=== PATIENT | male | born 1950 | race Caucasian/White ===

== ENCOUNTER → 2018-01-29 18:44 | Outpatient (REF) | payer MEDICARE, BC, SELFPAY | LOC: LAB 18:44 | PROVIDERS: Visit Provider Dermatology MOHS-Micrographic Surgery | DX: Z48.817 Encounter for surgical aftercare following surgery on the skin and subcutaneous tissue (principal); L01.00 Impetigo, unspecified | CPT/HCPCS: 87070; 87075; 87077; 87186; 87205 ==

== ENCOUNTER 2018-09-14 10:13 | Day surgery (SDC) | payer MEDICARE, BC, SELFPAY ==
[2018-08-28 12:16] VITALS: BMI 29.0
[2018-09-14] MEDS: LIDOCAINE 2% INJ SDV 5 ML INJ (11:00)
[2018-09-14] MEDS: BUPIVACAINE 0.5% (PF) VIAL 30 ML INJ (11:00)
[2018-09-14 11:07] VITALS: BP 120/68; PULSE 68; RESP 15; TEMP 36.3; O2SAT 97; BMI 29.0
[2018-09-14] MEDS: LACTATED RINGERS 1,000 ML 42 ML IV (11:20)
--- NOTE | 2018-09-14 11:54 | PM.PREOP ---
Pre-operative Note Interval Note History & Physical reviewed/Exam performed by Physician: Yes Changes to H&P: No
--- NOTE | 2018-09-14 11:54 | PM.OP.1 ---
Operative Date/Time/Diagnoses Date of procedure: 09/14/18 Time of procedure: 11:55 Pre-op diagnosis: Ankle pain, bilateral Plantar fasciitis, bilateral Post-op diagnosis: same Procedure & Clinicians Procedure: 1) Intraarticular steroid injection left and right ankles 2) Plantar fascial steroid injection left and right heels. Same procedure as scheduled: Yes Indications: Painful ankle joint and plantar fasciitis. To move forward with treatment he preferred sedation for the injections of the above concerns. Surgeon: Josie Gray Click Yes if Unassisted: Yes Anesthesia Type: Sedation Operative Notes Closure Type: not applicable Specimen(s): none sent Blood products transfused: none Tourniquet time (min): 0 Procedure in detail: Patient was brought to the operating room and placed on the operating table in supine position. After IV sedation Um the foot and ankles were sterilely prepped and draped in the usual aseptic manner. Using sterile technique, the the left anterolateral ankle was approached and injected with dexamethasone phosphate 5 mg, 0.5% Marcaine plain, and 2% lidocaine plain. The same procedure was performed to the contralateral ankle. Next, the left heel was injected just distal to the medial calcaneal tubercle along the plantar fascia of Kenalog 20 mg in 0.5% Marcaine plain and 2% lidocaine plain. The same procedure was performed to the right heel. The patient tolerated the injections well and was transferred to PACU with vital signs stable and vascular status intact. Complications: none Condition: stable Disposition: PACU Plan for aftercare: Postoperative expectation and care after steroid instructions is reviewed verbally with he and his shoe. They had no additional questions. We will see him at his already scheduled follow-up appointment for both above concerns generally within a month of this procedure.
--- NOTE | 2018-09-14 12:33 | SUR.OPER ---
Supine on padded OR bed, head on pillow, arms secured on padded arm boards at <90 degrees abduction, legs uncrossed, safety belt at thigh, tape over blanket over lower legs.
[2018-09-14 12:40] VITALS: BP 124/76; PULSE 65; RESP 16; TEMP 36.4; O2SAT 95
--- NOTE | 2018-09-14 13:01 | SUR.PHASEII ---
1250 pt requests to go home , bandaids dci, no pain, Dr wyatt in to talk with patient, no questions , pt steady on feet , no co's
[2018-09-14] MEDS: DEXAMETHASONE 10 MG/ML VIAL INJ (14:13)
[2018-09-14] MEDS: TRIAMCINOLONE 40 MG/ML VIAL IM (14:17)
== END 2018-09-14 12:54 ==
LOC: OR 10:17
PROVIDERS: PCP Family Medicine; Visit Provider Podiatrist
PROC: (CPT 20605; principal; 2018-09-14 11:45)
DX: M72.2 Plantar fascial fibromatosis (principal); M76.821 Posterior tibial tendinitis, right leg; M76.822 Posterior tibial tendinitis, left leg; M25.871 Other specified joint disorders, right ankle and foot; M25.872 Other specified joint disorders, left ankle and foot; I10 Essential (primary) hypertension; E78.5 Hyperlipidemia, unspecified; F32.9 Major depressive disorder, single episode, unspecified; D50.9 Iron deficiency anemia, unspecified
CPT/HCPCS: 20605; 20550; J1100; J2704; J3010

== ENCOUNTER 2018-12-14 08:56 | Day surgery (SDC) | payer MEDICARE, BC, SELFPAY ==
[2018-11-30 10:55] VITALS: BMI 29.0
--- NOTE | 2018-12-14 08:00 | PM.OP.1 ---
Operative Date/Time/Diagnoses Date of procedure: 12/14/18 Time of procedure: 11:08 Pre-op diagnosis: Left and right ankle joint impingement, arthritis Left and right plantar fasciitis Post-op diagnosis: same Procedure & Clinicians Procedure: Left and right anterolateral ankle joint injection steroid Left and right plantar fascial injection steroid Same procedure as scheduled: Yes Indications: Painful plantar fasciitis and ankle arthritis, impingement Surgeon: Josie Vora Yes if Unassisted: Yes Anesthesia Type: Sedation Operative Notes Closure Type: not applicable Specimen(s): none sent Estimated Blood Loss (mL): 0 Blood products transfused: none Procedure in detail: Patient was brought to the operating room and placed on the operating table in supine position. After IV sedation the foot and ankles were sterilely prepped and draped in the usual aseptic manner. Using sterile technique, the left anterolateral ankle was approached and injected with dexamethasone phosphate 5 mg, 0.5% Marcaine plain, and 2% lidocaine plain. The same procedure was performed to the contralateral ankle. Next, the left heel was injected just distal to the medial calcaneal tubercle along the plantar fascia of Kenalog 20 mg in 0.5% Marcaine plain and 2% lidocaine plain. The same procedure was performed to the right heel. The patient tolerated the injections well and was transferred to PACU with vital signs stable and vascular status intact Complications: none Condition: stable Disposition: PACU Plan for aftercare: Caution through the day on activity as the areas injected may have some transient numbness. Reviewed to follow up in approx 3-4 wks for review of his symptoms and next level of treatment.
[2018-12-14 09:20] VITALS: BMI 29.4
[2018-12-14 09:27] VITALS: BP 138/88; PULSE 61; RESP 12; TEMP 37.3; O2SAT 96
[2018-12-14] MEDS: LACTATED RINGERS 1,000 ML 42 ML IV (09:38)
--- NOTE | 2018-12-14 11:11 | PM.PREOP ---
Pre-operative Note Interval Note History & Physical reviewed/Exam performed by Physician: Yes Changes to H&P: No
--- NOTE | 2018-12-14 11:34 | SUR.OPER ---
Supine on padded OR bed, head on pillow, arms secured on padded arm boards at <90 degrees abduction, legs uncrossed, safety belt at thigh, tape over blanket over lower legs.
[2018-12-14] MEDS: TRIAMCINOLONE 40 MG/ML VIAL IM (11:42)
[2018-12-14 11:43] VITALS: BP 127/73; PULSE 65; RESP 13; O2SAT 97
[2018-12-14] MEDS: DEXAMETHASONE 10 MG/ML VIAL IV (11:44)
[2018-12-14 11:45] VITALS: BP 127/73; PULSE 61; RESP 12; O2SAT 98
[2018-12-14] MEDS: BUPIVACAINE 0.5% (PF) VIAL 30 ML INJ (11:46)
[2018-12-14] MEDS: LIDOCAINE 2% INJ MDV 20 ML INJ (11:47)
[2018-12-14 11:55] VITALS: BP 133/73; PULSE 67; RESP 14; TEMP 36.8; O2SAT 94
--- NOTE | 2018-12-14 12:12 | SUR.PHASEII ---
1146 late entry Received pt for Diana Quigley, RN in PACU; said that patient was stable to discharge. Pt wide awake, oriented, c/o foot/ankle pain 08/08. To [facility],. bed down and locked. Juice and crackers given. Discussed pain level with Dr. Gray; stated that she instilled numbing medication and that his pain level is unrelated to what she did. Will dc patient without medication. Bandaids CDI on bilateral feet. to bedside. spoke with them both. 1205 VSS, Prepared to DC.
--- NOTE | 2018-12-14 12:18 | PM.PROC.1 ---
Procedures Date/Time Date of procedure: 12/14/18 Time of procedure: 12:05 General Procedure description: Ultrasound guided popliteal sciatic nerve block for post op pain control after right foot MTP joint arthrodesis by Dr. Gray. Risk and benefits of procedure discussed with patient. ASA monitoring applied to patient. Oxygen given via nasal cannula. 30 mg propofol and 0.5mg hydromorphone for sedation. Patient was in prone position. Skin site was prepped with chlorhexidine and allowed to fully dry. Sterile gloves, mask, hat and probe cover were used to maintain sterility. 2% lidocaine and 30ga needle was used to make a small skin wheal at needle insertion site. Under ultrasound guidance, a 21ga 100mm Pajunk needle was directed near the division of the sciatic nerve into tibial and peroneal nerve in the popliteal fossa (lateral approach). Patient reported no parasthesias. After negative aspiration, 20 mL 0.5% ropivicaine and 10mg dexamethasone were injected around sciatic nerve. Patient tolerated procedure well.
--- NOTE | 2018-12-14 12:23 | SUR.PHASEII ---
1213 To home with . Stable, calm, oriented, Tolerating PO intake well. Pleasant.
== END 2018-12-14 12:13 | disposition home or self-care (01) ==
PROVIDERS: PCP Family Medicine; Visit Provider Podiatrist
PROC: 0HTRXZZ Resection of Toe Nail, External Approach (ICD-10-PCS; CPT 20605; principal; 2018-12-14 10:15)
DX: M25.871 Other specified joint disorders, right ankle and foot (principal); M25.872 Other specified joint disorders, left ankle and foot; M19.071 Primary osteoarthritis, right ankle and foot; M19.072 Primary osteoarthritis, left ankle and foot; M72.2 Plantar fascial fibromatosis; M76.821 Posterior tibial tendinitis, right leg; M76.822 Posterior tibial tendinitis, left leg; E78.5 Hyperlipidemia, unspecified; I10 Essential (primary) hypertension; I25.10 Atherosclerotic heart disease of native coronary artery without angina pectoris; Z95.5 Presence of coronary angioplasty implant and graft
CPT/HCPCS: 20605 ×2; 20550 ×2; J1100; J2250; J2704; J3010

== ENCOUNTER 2019-03-15 10:55 | Day surgery (SDC) | payer MEDICARE, BC, SELFPAY ==
[2019-03-12 08:03] VITALS: BMI 27.9
--- NOTE | 2019-03-15 | DI.RAD.S_ITS ---
PROCEDURE: XR FOOT RT 2V INDICATIONS: FOOT INJECTION TECHNIQUE: Single views of the foot were acquired. COMPARISON: [facility], CR, XR FOOT LT 2V, 03/15/2019, 15:39. FINDINGS: Single spot fluoroscopic image for hindfoot injection guidance performed by the clinician. Dictated by: Francisco Nath M.D. on 03/15/2019 at 16:38 Approved by: Francisco Nath M.D. on 03/15/2019 at 16:40
--- NOTE | 2019-03-15 | DI.RAD.S_ITS ---
PROCEDURE: XR FOOT LT 2V INDICATIONS: FOOT INJECTION TECHNIQUE: 1 views of the foot were acquired. COMPARISON: None. FINDINGS: Bones: Lateral view of the left foot demonstrates a presumed needle projected over the distal aspect of the anterior process of the talus as well as the tarsal navicular bone. Calcaneal enthesopathy noted. Soft tissues: No tibiotalar joint effusion. Achilles tendon appears normal. IMPRESSION: Lateral view of the left foot and ankle demonstrating a presumed needle projected over the anterior process of the talus and the tarsal navicular bone. Dictated by: Luke AYERS Interpreted: fJ Do MD on 03/15/2019 at 16:19 Approved by: Sridhar Mark M.D. on 03/19/2019 at 9:34
[2019-03-15 11:30] VITALS: BP 122/83; PULSE 60; RESP 15; TEMP 36.3; O2SAT 98; BMI 29.3
[2019-03-15] MEDS: LACTATED RINGERS 1,000 ML 100 ML IV (11:36)
--- NOTE | 2019-03-15 14:47 | PM.PREOP ---
Pre-operative Note Interval Note History & Physical reviewed/Exam performed by Physician: Yes Changes to H&P: No
--- NOTE | 2019-03-15 14:48 | PM.HP.1 ---
History of Present Illness History of Present Illness Date Patient Seen: 03/15/19 Time Patient Seen: 15:00 Chief complaint: [id number] Narrative: Persistent pain to the left and right ankles in the area of the sinus tarsi. He was unable to come in for his preoperative history and physical at the office and he is here today in the operating room holding area ready to proceed. He would like to proceed. Patient History Medical History Anemia (Acute) Depression (Acute) HLD (hyperlipidemia) (Acute) HTN (hypertension) (Acute) Spinal stenosis (Acute) Surgical History Hx of heart artery stent (Acute) Status post epidural steroid injection (Acute) Family & Social History Social History: household members spouse Tobacco & Substance use: Tobacco type cigarettes Smoking Status Former smoker Meds Home Medications and Allergies Home Medications Medication Instructions Recorded Confirmed Type aspirin [Aspir-81] 81 mg PO DAILY 08/28/18 03/15/19 History ferrous sulfate 250 mg PO DAILY 08/28/18 03/15/19 History lisinopril 20 mg PO DAILY 08/28/18 03/15/19 History metoprolol succinate 50 mg PO DAILY 08/28/18 03/15/19 History omeprazole 20 mg PO DAILY 08/28/18 03/15/19 History rosuvastatin [Crestor] 40 mg PO DAILY 08/28/18 03/15/19 History fluoxetine 40 mg PO DAILY 12/14/18 03/15/19 History Allergies Allergy/AdvReac Type Severity Reaction Status Date / Time Penicillins Allergy Mild Rash-childh Verified 03/15/19 11:16 ood Exam Vital Signs (past 8 hours): - 03/15/19 11:30 Temperature 97.3 F L Pulse Rate 60 Respiratory Rate 15 Blood Pressure 122/83 Pulse Oximetry 98 Oxygen Delivery Method Room Air Const General: cooperative Orientation: alert and oriented x3 Resp Effort & Inspection: normal respiratory effort Cardio Rate: regular rate Rhythm: regular rhythm Extrem Other: Vascular status intact to the ankles. Soreness on palpation to the sinus tarsi bilaterally. No open wounds. 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 He would like to proceed and there are no contraindication to the procedures at this time.
--- NOTE | 2019-03-15 15:18 | PM.OP.1 ---
Operative Date/Time/Diagnoses Date of procedure: 03/15/19 Time of procedure: 15:18 Pre-op diagnosis: Sinus tarsitus right and left ankles Post-op diagnosis: same Procedure & Clinicians Procedure: Steroid injection to the sinus tarsi right and left ankles. Same procedure as scheduled: Yes Indications: Pain to the sinus tarsi right and left ankles. Surgeon: Josie Gray Click Yes if Unassisted: Yes Anesthesia Type: MAC +/- Operative Notes Closure Type: not applicable Specimen(s): none sent Estimated Blood Loss (mL): 0 Blood products transfused: none Procedure in detail: Patient was brought to the operating room and placed on the operating table in supine position. After IV sedation the foot and ankles were sterilely prepped and draped in the usual aseptic manner. Using sterile technique, the left anterolateral ankle was approached and injected into the sinus tarsi under the aid of C-arm with celestone 5 mg, 0.5% Marcaine plain, and 2% lidocaine plain. The same procedure was performed to the contralateral ankle. The patient tolerated the injections well and was transferred to PACU with vital signs stable and vascular status intact Complications: none Post-operative Condition: stable Disposition: PACU Plan for aftercare: Advised to take care of the being safe as the areas will be numb for the next couple of hours and no dressings are needed. He will follow up in approximately 1 month for a checkup of how this aided his pain.
--- NOTE | 2019-03-15 15:41 | SUR.OPER ---
Supine on padded OR bed, head on pillow, arms secured on padded arm boards at <90 degrees abduction, legs uncrossed, safety belt at thigh,heels elevated on gel positioner
--- NOTE | 2019-03-15 15:42 | SUR.OPER ---
Supine on padded OR bed, head on pillow, arms secured on padded arm boards at <90 degrees abduction, legs uncrossed, safety belt at thigh, heels elevated on gel positioner, bilaterally.
[2019-03-15] MEDS: BUPIVACAINE 0.5% (PF) VIAL 30 ML INJ (15:49)
[2019-03-15 15:50] VITALS: BP 117/62; PULSE 70; RESP 10; TEMP 36.2; O2SAT 96
[2019-03-15] MEDS: LIDOCAINE 2% INJ SDV 5 ML INJ (15:51)
[2019-03-15] MEDS: BETAMETHASONE 30 MG/5 ML MDV 6 MG INJ (15:53)
[2019-03-15 15:55] VITALS: BP 120/80; PULSE 70; RESP 8; O2SAT 95
[2019-03-15 16:02] VITALS: BP 111/79; PULSE 68; RESP 9; O2SAT 96
[2019-03-15 16:12] VITALS: BP 122/73; PULSE 59; RESP 20; TEMP 36.4; O2SAT 94
== END 2019-03-15 16:24 | disposition home or self-care (01) ==
PROVIDERS: PCP Family Medicine; Visit Provider Podiatrist
PROC: (CPT 20605; principal; 2019-03-15 12:15)
DX: M25.571 Pain in right ankle and joints of right foot (principal); M25.572 Pain in left ankle and joints of left foot
CPT/HCPCS: 20605; 73620; 76000; 77002; J0702; J2250; J2704; J3010